=== PATIENT | male | born 1975 | race Caucasian/White ===

== ENCOUNTER → 2018-12-14 09:07 | Outpatient (CLI) | payer OTHER, SELFPAY ==
--- NOTE | 2018-12-14 09:16 | US_ITS ---
STUDY: ABDOMINAL ULTRASOUND - RIGHT UPPER QUADRANT REASON FOR VISIT: Male, 43 years old. Abdominal pain TECHNIQUE: Ultrasound evaluation of the right upper quadrant was performed with real-time and static hooks-scale imaging. TECHNICAL QUALITY: Adequate. COMPARISON: None. FINDINGS: Liver: The liver measures 14.0 cm. There is normal echogenicity of the liver. The bile ducts are within normal limits. There is hepatic color flow. The direction of portal flow is hepatopetal. There is no demonstrated mass lesion. Gallbladder: Normal distended gallbladder. The gallbladder wall measures 2 mm. There is a negative sonographic Simmons's sign. There is no pericholecystic fluid. Large stone in the base of the gallbladder with the remainder the gallbladder filled with sludge. Common Bile Duct (C.B.D.): The common bile duct measures 3 mm. Pancreas: Normal size of the head, body and tail of the pancreas. There is normal echogenicity of the pancreas. There is no demonstrated pancreatic mass or cyst. Right Kidney: Normal size of the right kidney. The right kidney measures 11.4 cm. Normal renal cortex. The right cortex measures 1.5 cm. There is no demonstrated renal mass or cyst. There is no right hydronephrosis. US/Abdomen Limited IMPRESSION: Stones and sludge in the gallbladder. Electronically Signed: Reagan Erickson MD at 16:16 EDT Tel , Service support ,
== END ==
PROVIDERS: Family Provider Family Medicine; PCP Family Medicine
DX: R10.11 Right upper quadrant pain (principal)
CPT/HCPCS: 76705

== ENCOUNTER 2019-01-11 05:23 | Day surgery (SDC) | payer OTHER, SELFPAY ==
--- NOTE | 2018-12-25 02:17 | HP_ITS ---
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: No Is patient in pain?: No Allergies No Known Allergies Allergy (Unverified 12/25/18 14:06) Medications albuterol sulfate HFA 90 mcg/actuation aerosol inhaler 2 puff INHALATION Q6H 12/25/18 [History Confirmed 12/25/18] loratadine 10 mg tablet 10 mg PO DAILY 12/25/18 [History Confirmed 12/25/18] naproxen 250 mg tablet 250 mg PO BID 12/25/18 [History Confirmed 12/25/18] [facility] Medical History Seasonal allergies (Acute) Surgical History No history of previous surgery (Acute) Social History (Updated 12/25/18 @ 14:20 by Fredi Vera MD) Smoking Status: Never smoker alcohol intake: current alcohol intake frequency: a few times a month HPI HPI HPI: JAVI LÓPEZ, is a 43 M who presents to the office today for HPI HPI Surgical H&P: Yes HPI: JAVI LÓPEZ, is a 43 M who presents to the office today for evaluation of symptomatic cholelithiasis. Patient has had 2 episodes of epigastric and right upper quadrant abdominal pain with nausea and vomiting these of all been precipitated by larger meals or fatty meals. He was seen by his primary care physician and underwent a gallbladder ultrasound it [facility] on 12/14/2018. This showed a normal distended gallbladder with gallbladder wall measuring 2 mm. There was a negative sonographic Simmons sign. There was no pericholecystic fluid. There was a large stone in the base of the gallbladder with the remaining of the gallbladder filled with sludge. ROS General General: No weight change, appetite, fatigue, colon cancer, breast cancer or weakness HEENT HEENT: No difficulty swallowing, eye injury, eye surgery, swollen glands or hoarseness Endo Endocrine: No thyroid disease, diabetes mellitus, thyroid cancer, Hair loss, heat intolerance or cold intolerance Skin Skin: No rash or changing moles Breast Breast: No left breast lump, right breast lump, nipple discharge, breast pain, abnormal mammogram, abnormal US or breast enlargement Musc Musculoskeletal: Yes back problems; no arthritis, rheumatoid arthritis, gout or joint pain Cardio Cardiovascular: No murmur, pacemaker, heart disease, atrial fibrillation, high blood pressure, heart attack, heart stent, palpitations, shortness of breat with exertion or chest pain Psych Psychiatric: Yes anxiety; no depression or hearing voices Resp Respiratory: No shortness of breath, No sleep apnea, No cough, No COPD, Yes asthma, No emphysema, No wheezing Gastro Gastrointestinal: No abdominal pain, No nausea or vomiting, No diarrhea, No constipation, No blood in stool, No acid reflux, No hemorrhoids, No ulcers, Yes gallbladder problem, No black,tarry stools Manjinder Hematologic: No blood thinners, No blood disorders, No bleeding, No anemia, No blood clots Neuro Neurologic: No system reviewed and no additional complaints, except as docu, No as per HPI, No abnormal walking, No abnormal hearing, No abnormal movements, No abnormal speech, No behavioral changes, No burning sensations, No confusion, No seizure-like activity, No unsteadiness, No dizziness, No localized weakness, No frequent falls, No headache(s), No lack of coordination, No loss of vision, No memory loss, No numbness, No other visual disturbances, No radiating pain, No restless legs, No sensory deficit, No fainting, No tingling, No tremor(s), No weakness, No other Exam Const General: no acute distress, well developed, well hydrated Orientation: oriented to person, oriented to place, oriented to time [facility] Head: normocephalic, atraumatic Ears: external ears normal Mouth: moist mucous membranes Eyes Sclera: sclerae normal Pupils: normal by confrontation Neck Neck: no lymphadenopathy noted Neck mass: No Thyroid: thyroid normal, symmetrical Chest Chest palpation & inspection: normal inspection of the chest Breast Palpation: No nipple discharge Resp Effort & Inspection: normal respiratory effort Auscultation: clear to auscultation bilaterally Percussion: percussion normal Cardio Rate: regular rate Rhythm: regular rhythm Heart Sounds: no murmurs GI Palpation: soft, no hepatosplenomegaly, no masses, nontender Auscultation: normal bowel sounds Rectal Exam: other Other: Rectal exam deferred. Extrem General: normal to inspection, no clubbing, cyanosis or edema Assessment & Plan Problems 1. Calculus of gallbladder with chronic cholecystitis without obstruction K80.10 2. Abdominal pain, RUQ R10.11 Plan My plan is to perform a laparoscopic cholecystectomy with intraoperative cholangiogram. The planned surgical procedure was discussed extensively with the patient. The risks, benefits, anticipated outcomes and possible complication were mentioned. My staff has also explained the procedure in understandable terms and the patient was given the option to take printed material concerning the planned procedure. The patient had the opportunity to ask questions concerning the planned procedure. The patient freely consents to the planned procedure. Coding Level of Care Code Off vis,new,level 3 Diagnoses Calculus of gallbladder with chronic cholecystitis without obstruction K80.10 ??Cholelithiasis location: gallbladder ??Cholecystitis acuity: chronic Abdominal pain, RUQ R10.11 12/25/18 1420 <Electronically signed by Fredi Vera MD> Date Fredi Vera MD I have re-examined the patient. There are no clinical changes since date of exam.
[2018-12-25 14:05] VITALS: BMI 24.0
[2019-01-11] VITALS (8 sets, daily range): BP systolic 107–124; BP diastolic 58–74; PULSE 51–74; RESP 16; TEMP 36–36.7; O2SAT 93–100; BMI 23.8
--- NOTE | 2019-01-11 | GALL_PTH ---
PATIENT: JAVI LÓPEZ [place] [facility] [place][id number] AGE/SX: 43/M ROOM: RE01/11/[address]: Dr. Fredi Vera MD : 1975 BED: DIS: 01/11/2019 SPEC #: [id number] RECD: 01/11/19 12:36 STATUS: NOHEMI RAMAN #: [id number] GILLES: 01/11/19 00:[address]: Fredi Vera DEPT: SURGICAL PATHOLOGY RECD BY: Chepe Salguero ENTERED: 01/11/19 12:36 SP TYPE: JAQUELINE PARKS DR: Dr. Vince Coyle, DO Tissues: Gallbladder, NOS Procedures: Surgery Specimen Level III HEADER OPERATION: Laparoscopic cholecystectomy PRE-OP DIAGNOSIS: Calculus of gallbladder with chronic cholecystitis without obstruction; right upper quadrant pain TISSUE SUBMITTED: Gallbladder MICROSCOPIC DIAGNOSIS Gallbladder, cholecystectomy: Chronic cholecystitis and cholelithiasis. A pericystic lymph node with reactive changes. SJ:saw 01/12/19 MICROSCOPIC DESCRIPTION Slides are reviewed. GROSS DESCRIPTION Received is one container labeled with the patient's name and designated gallbladder. The specimen consists of a gallbladder measuring 9 cm in length and up to 3.5 cm in diameter. The external surface is pink-edouard, smooth and glistening for the most part. Focally it is granular, hemorrhagic and contains cautery artifact. The gallbladder contains green-yellow mucoid bile and an ovoid brownish-green stone in the proximal portion of the gallbladder close to cystic duct measuring 4 x 2.5 x 2.5 cm. The mucosa is bile-stained and without any mass lesions. The gallbladder wall measures up to 0.3 cm in thickness. Washer Hand sections from the gallbladder and the cystic duct are submitted in one cassette. / RAMON:saw 01/11/19 TC:3 CPT: 81138
--- NOTE | 2019-01-11 07:31 | OP.PCM_ITS ---
Problem List (1) Calculus of gallbladder with chronic cholecystitis without obstruction Status: Chronic (2) Right upper quadrant pain Status: Acute Report of Operation Date of Procedure: 01/11/19 Pre-Operative Diagnosis: Chronic cholecystitis with cholelithiasis. Right upper quadrant abdominal pain Post-Operative Diagnosis: Same Surgery/Procedure Performed:: Laparoscopic cholecystectomy Type of Anesthesia:: General Anesthesiologist: Rusty Grey Specimen's removed: Gallbladder Estimated Blood Loss (mL): < 25 cc Fluids Replaced: 1200 cc LR Description of Procedure: Patient was brought into the operating room. Placed in the supine position. Under excellent general endotracheal base and the abdomen was sterilely prepped and draped in usual fashion. Local was injected infra umbilically. Dissection was carried down to the fascia. Fascia was grasped with [place]. Varies needle was placed inside the abdomen. Abdomen was insufflated to 15 torr. A 10/12 trocar was placed without difficulty. Patient was placed in the head up and rotated to the left position. Subxiphoid #5 trochars placed, inferior to this another #5 trocar, and laterally a #5 trocar. All of these under direct visualization without injury to underlying structures. Fundus of the gallbladder was grasped retracted in cephalad direction infundibulum was grasped retracted laterally this was a very thick densely packed gallbladder I was able to dissect the cystic duct free but it was very short distance between the gallbladder itself and the common bile duct and after identifying this as well as the cystic artery I decided that I would not shoot a cholangiogram secondary to the friable nature of this area and how short of the distance it was to the common bile duct. I placed hemoclips proximally distally and ligated the duct i dentified the cystic artery placed hemoclips proximally distally and ligated the artery deliver the gallbladder from gallbladder bed I did have some spillage of bile but I was easily able to retrieve I placed a specimen specimen bag and delivered through the umbilical port without difficulty irrigated the right upper quadrant. I placed a small Ray-Hood up to apply some pressure to the liver bed and after this I used the argon beam cognos report developer to achieve complete hemostasis once this was completed I placed Shekhar into the bed of the liver good hemostasis was noted. I remove the trochars under direct visualization good hemostasis was noted the Ray-Hood was retrieved accurate needle sponge count was obtained. Fascia was closed with 2 sutures [id number] fashion of 0 Vicryl. Skin incisions were closed with some particular stitches of 4-0 Monocryl. Steri-Strips were applied sterile dressings were applied and the patient tolerated the procedure well. - Admit VTE Documentation VTE Present on Admission: No VTE Mechan Device Prophylaxis: SCD's VTE Pharm Prophylaxis ordered?: No Reason prophylaxis not ordered:: Treatment Not Indicated
--- NOTE | 2019-01-11 07:33 | DCINST_ITS ---
Discharge Diet: Light diet - advance as tolerated Discharge Activity: May Not Drive - for 2-3 days or while taking narcotic pain medications., - - Do not drive, work heavy equipment or sign legal documents for 24 hours. May shower in (days): 1 - with the bandage in place. Additional Activity Instructions:: Pain medication may cause nausea. You should typically eat light foods as you take your pain medications. Pain medication may also cause constipation. If this is a problem for you, please discuss with your doctor. Call your doctor if your incision/area has: Continuous Slow Oozing, Sudden Increased Bleeding, Increased Pain/ Swelling, Increased Redness, Foul Smelling Discharge Call your doctor if you observe: Fever of 101 or Higher Suture Line Care: Avoid Pulling/Pushing, Avoid Pinching/Bending Additional Dressing/Incision Instructions:: Leave operative bandaids on for 2 days. When you remove dressing, leave Steri-Strips on until your follow-up appointment, or until the Steri-Strips fall off on their own. Allergies/Adverse Reactions: Allergies No Known Allergies Allergy (Unverified 01/04/19 15:51) Medications to take at Discharge loratadine 10 mg tablet 10 mg PO DAILY PRN 12/25/18 naproxen 250 mg tablet 250 mg PO BID PRN 12/25/18 Albuterol IH (ProAir) [Proair Hfa (SP)Vent Pts] 2 puff INHALATION Q4H PRN PRN 01/04/19 Oxycodone HCl/Acetaminophen [Percocet 5/325] 1 - 2 tab PO Q4H PRN PRN 6 Days #30 tab 01/11/19 The following prescriptions were given: Oxycodone HCl/Acetaminophen [Percocet 5/325] 1 - 2 tab PO Q4H PRN PRN 6 Days #30 tab PRN Reason: Pain Prescription Printed Primary Care Physician: Vince Coyle DO [Primary Care Provider] - Test Results: Test results from this visit will be discussed in further detail at your follow- up appointment, if applicable. Please Follow Up With: Fredi Vera MD - Please call [phone] to schedule an appointment. When: 7 days after your surgery.
[2019-01-11] MEDS: oxyCODONE 5 MG Tablet PO (10:10)
[2019-01-11] MEDS: Acetaminophen 325 MG Tablet PO (10:11)
== END 2019-01-11 11:33 | disposition home or self-care (01) ==
LOC: SDC 05:24 → AC 05:24
PROVIDERS: Family Provider Family Medicine; PCP Family Medicine; Referring Provider Surgery; Visit Provider Surgery
PROC: (CPT 47610; principal; 2019-01-11 06:55)
DX: K80.10 Calculus of gallbladder with chronic cholecystitis without obstruction (principal); J45.909 Unspecified asthma, uncomplicated; F41.9 Anxiety disorder, unspecified; Z79.899 Other long term (current) drug therapy
CPT/HCPCS: 00790; 47563; 88304; 93005; J7120; J2405